=== PATIENT | female | born 1990 | race Caucasian/White ===

== ENCOUNTER 2021-04-12 16:52 | Inpatient (IN) | payer MEDICAID, OTHER ==
[~2021-04-12] VITALS: Ht 167.6 cm; Wt 56.3 kg
[2021-04-12] MEDS ORDERED: LAMO25TA25 PO (16:58)
[2021-04-12] MEDS ORDERED: DIVA-80 PO (16:58)
[2021-04-12] MEDS ORDERED: QUET100T PO (16:58)
[2021-04-12] MEDS ORDERED: LITH300C3 PO (16:58)
[2021-04-12] MEDS ORDERED: QUEtiapine FUMARATE 100 MG TABLET PO ONE (17:15)
[2021-04-12 17:36] LABS: BASOPHILS % (AUTO) 0.6 % (0.0-2.0); EOSINOPHILS % (AUTO) 2.2 % (1.0-6.0); HEMATOCRIT 40.6 % (36-46); HEMOGLOBIN 13.2 g/dL (12.0-16.0); LYMPHOCYTES # (AUTO) 2.2 K/uL (1.0-4.8); LYMPHOCYTES % (AUTO) 17.3 % (22.0-44.0); MEAN CORPUSCULAR HEMOGLOBIN 32.2 pg (26.0-34.0); MEAN CORPUSCULAR HGB CONC 32.4 G/dL (31.0-37.0); MEAN CORPUSCULAR VOLUME 99 fL (80-100); MONOCYTES # (AUTO) 1.3 K/uL (0.1-1.0); NEUTROPHILS % (AUTO) 69.9 % (40.0-70.0); PLATELET COUNT (AUTO) 310 K/uL (150-450); RED BLOOD CELL COUNT(AUTO) 4.09 MIL/uL (4.00-5.20); RED CELL DISTRIBUTION WIDTH 13.5 % (11.5-14.5)
[2021-04-12] MEDS ORDERED: QUEtiapine FUMARATE 100 MG TABLET PO PRN (17:45)
[2021-04-12] MEDS ORDERED: LORazepam 2 MG TABLET PO PRN (17:45)
[2021-04-12] MEDS ORDERED: ZOLPIDEM TARTRATE 10 MG TABLET PO PRN (17:45)
[2021-04-12 17:49] LABS: ANION GAP 4 mmol/L (8-16); CALCIUM, TOTAL 8.8 mg/dL (8.8-10.5); CARBON DIOXIDE 29 mmol/L (22-29); CHLORIDE 104 mmol/L (98-107); CREATININE 0.84 mg/dL (0.60-1.30); GLOMERULAR FILTR. RATE CALC > 60 mL/min (>60); GLUCOSE,RANDOM 105 mg/dL (70-110); POTASSIUM 3.7 mmol/L (3.5-5.1); SODIUM SERUM 137 mmol/L (136-145); UREA NITROGEN, BLOOD 7 mg/dL (7-18)
[2021-04-12 18:12] LABS: ALANINE AMINOTRANSFERASE 10 U/L (12-78); ALBUMIN 3.8 g/dL (3.4-5.0); ALKALINE PHOSPHATASE 66 U/L (46-116); ASPARTATE AMINOTRANSFERASE 14 U/L (15-37); BILIRUBIN,TOTAL 0.2 mg/dL (0.1-1.0); TOTAL PROTEIN, SERUM 7.6 g/dL (6.4-8.2)
[2021-04-12 18:17] LABS: VALPROIC ACID 177 mcg/mL (50-100)
[2021-04-12 18:26] LABS: COVID AG,FIA SOURCE NASOPHARYNGEAL
[2021-04-12 19:38] VITALS: BP 135/90
[2021-04-13 08:55] VITALS: BP 115/60
[2021-04-13] MEDS ORDERED: MAG HYDROX/AL HYDROX/SIMETH ES 30 ML SUSPENSION UDCUP PO PRN (10:00)
[2021-04-13] MEDS ORDERED: PETROLATUM,WHITE 28 GM JELLY TP PRN (10:00)
[2021-04-13] MEDS ORDERED: BACITRACIN 28 GM OINTMENT TP PRN (10:00)
[2021-04-13] MEDS ORDERED: ALBUTEROL SULFATE HFA 90 MCG/PUFF 8 GM INHALER IH PRN (10:00)
[2021-04-13] MEDS ORDERED: IBUPROFEN 600 MG TABLET PO PRN (10:00)
[2021-04-13] MEDS ORDERED: ONDANSETRON HCL 4 MG TABLET PO PRN (10:00)
[2021-04-13] MEDS ORDERED: MAGNESIUM HYDROXIDE SUSPENSION 30 ML UDCUP PO PRN (10:00)
[2021-04-13] MEDS ORDERED: CloNIDine HCL 0.1 MG TABLET PO PRN (10:00)
[2021-04-13] MEDS ORDERED: OMEPRAZOLE 20 MG CAPSULE PO PRN (10:00)
[2021-04-13] MEDS ORDERED: BENZOCAINE/MENTHOL LOZENGE PO PRN (10:00)
[2021-04-13] MEDS ORDERED: LOPERAMIDE HCL 2 MG CAPSULE PO PRN (10:00)
[2021-04-13] MEDS ORDERED: DOCUSATE SODIUM 100 MG CAPSULE PO PRN (10:00)
[2021-04-13] MEDS ORDERED: ACETAMINOPHEN 325 MG TABLET PO PRN (10:00)
[2021-04-13 10:53] LABS: CHOL/HDL RATIO 2.4 (3.9-5.7); FREE T4 (FREE THYROXINE) 0.56 ng/dL (0.76-1.46); THYROID STIMULATING HORMONE 3.06 uIU/mL (0.36-3.74)
[2021-04-13 16:00] VITALS: BP 132/71
[2021-04-13] MEDS: LamoTRIgine 25 MG TABLET PO SCH (16:15)
[2021-04-13] MEDS: QUEtiapine FUMARATE 100 MG TABLET PO SCH (20:33)
[2021-04-14 08:19] VITALS: BP 119/86
[2021-04-14] MEDS: LamoTRIgine 25 MG TABLET PO SCH ×2 (08:54→16:33)
[2021-04-14 09:22] LABS: BASOPHILS % (AUTO) 0.9 % (0.0-2.0); EOSINOPHILS % (AUTO) 3.1 % (1.0-6.0); HEMATOCRIT 45.3 % (36-46); HEMOGLOBIN 14.8 g/dL (12.0-16.0); LYMPHOCYTES # (AUTO) 2.2 K/uL (1.0-4.8); LYMPHOCYTES % (AUTO) 24.7 % (22.0-44.0); MEAN CORPUSCULAR HEMOGLOBIN 32.7 pg (26.0-34.0); MEAN CORPUSCULAR HGB CONC 32.6 G/dL (31.0-37.0); MEAN CORPUSCULAR VOLUME 100 fL (80-100); MONOCYTES # (AUTO) 0.8 K/uL (0.1-1.0); MONOCYTES % (AUTO) 8.5 % (2.0-9.0); NEUTROPHILS # (AUTO) 5.6 K/uL (1.8-7.7); NEUTROPHILS % (AUTO) 62.8 % (40.0-70.0); PLATELET COUNT (AUTO) 290 K/uL (150-450); RED BLOOD CELL COUNT(AUTO) 4.51 MIL/uL (4.00-5.20); RED CELL DISTRIBUTION WIDTH 13.9 % (11.5-14.5)
[2021-04-14 09:34] LABS: LITHIUM 0.67 mmol/L (0.60-1.20)
[2021-04-14 09:45] LABS: ALANINE AMINOTRANSFERASE 19 U/L (12-78); ALBUMIN 3.8 g/dL (3.4-5.0); ALKALINE PHOSPHATASE 73 U/L (46-116); ANION GAP 4 mmol/L (8-16); ASPARTATE AMINOTRANSFERASE 17 U/L (15-37); BILIRUBIN,TOTAL 0.3 mg/dL (0.1-1.0); CALCIUM, TOTAL 8.8 mg/dL (8.8-10.5); CARBON DIOXIDE 28 mmol/L (22-29); CHLORIDE 106 mmol/L (98-107); CREATININE 0.86 mg/dL (0.60-1.30); GLOMERULAR FILTR. RATE CALC > 60 mL/min (>60); GLUCOSE,RANDOM 122 mg/dL (70-110); POTASSIUM 4.4 mmol/L (3.5-5.1); SODIUM SERUM 138 mmol/L (136-145); TOTAL PROTEIN, SERUM 7.6 g/dL (6.4-8.2); UREA NITROGEN, BLOOD 14 mg/dL (7-18); VALPROIC ACID 23 mcg/mL (50-100)
[2021-04-14 16:32] VITALS: BP 132/81
[2021-04-14] MEDS: QUEtiapine FUMARATE 100 MG TABLET PO SCH (20:28)
[2021-04-15] MEDS: LamoTRIgine 25 MG TABLET PO SCH ×2 (09:12→18:02)
[2021-04-15 09:18] VITALS: BP 115/77
[2021-04-15 16:00] VITALS: BP 137/78
[2021-04-15] MEDS: DIVALPROEX SODIUM 500 MG DR TABLET PO SCH (18:01)
[2021-04-15] MEDS: LITHIUM CARBONATE 300 MG CAPSULE PO SCH (18:01)
[2021-04-15] MEDS: QUEtiapine FUMARATE 100 MG TABLET PO SCH (21:21)
[2021-04-16 07:21] LABS: LITHIUM 0.37 mmol/L (0.60-1.20)
[2021-04-16 09:15] VITALS: BP 113/81
[2021-04-16] MEDS: LamoTRIgine 25 MG TABLET PO SCH ×2 (09:29→17:17)
[2021-04-16] MEDS: DIVALPROEX SODIUM 500 MG DR TABLET PO SCH ×2 (09:29→17:17)
[2021-04-16] MEDS: LITHIUM CARBONATE 300 MG CAPSULE PO SCH ×2 (09:29→17:17)
[2021-04-16 16:00] VITALS: BP 137/77
[2021-04-16] MEDS: QUEtiapine FUMARATE 100 MG TABLET PO SCH (21:13)
[2021-04-17] MEDS: DIVALPROEX SODIUM 500 MG DR TABLET PO SCH (08:21)
[2021-04-17] MEDS: LITHIUM CARBONATE 300 MG CAPSULE PO SCH (08:21)
[2021-04-17] MEDS: LamoTRIgine 25 MG TABLET PO SCH (08:22)
[2021-04-17 10:16] VITALS: BP 140/89
== END 2021-04-17 15:00 | disposition home or self-care (01) | DRG 750 ==
LOC: EMS 16:54 → 3EI 17:31
PROVIDERS: ADMIT Psychiatry & Neurology Psychiatry; ATTEND Psychiatry & Neurology Psychiatry
DX: F25.9 Schizoaffective disorder, unspecified (principal); F12.90 Cannabis use, unspecified, uncomplicated; F41.9 Anxiety disorder, unspecified; G47.00 Insomnia, unspecified; K59.00 Constipation, unspecified; T43.595A Adverse effect of other antipsychotics and neuroleptics, initial encounter; Y92.89 Other specified places as the place of occurrence of the external cause; Z20.822 Contact with and (suspected) exposure to COVID-19; Z87.891 Personal history of nicotine dependence
CPT/HCPCS: 80053; 80061; 80164; 80178; 84439; 84443; 85025; 99285; G0480